=== PATIENT | male | born 1995 | race Caucasian/White ===

== ENCOUNTER 2023-03-02 17:30 | Emergency (ER) | payer OTHER, SELFPAY ==
[2023-03-02 18:14] VITALS: BP 139/67; PULSE 67; RESP 18; TEMP 36.8; O2SAT 100
--- NOTE | 2023-03-02 19:13 | ED.ANXIETY ---
HPI - Anxiety General Chief Complaint: Anxiety Stated Complaint: mental health exam Time Seen by Provider: 03/02/23 19:12 History of Present Illness HPI narrative: 27-year-old male presented the emergency department for evaluation of increased anxiety. Patient states he has been going through a situation which involved a fellow client services manager committing suicide. Patient just returned from his friend's services. Patient does admit to daily THC use and is on Adderall. Patient states he has had increased difficulty sleeping and increased issues with anxiety. Patient denies any suicidal thoughts or any thoughts of self-harm. Patient declined to speak to a crisis counselor in the ED. Related Data Home Medications Medication Instructions Recorded Confirmed dextroamphetamine-amphetamine 20 20 mg PO BID 03/03/23 03/03/23 mg tablet (Adderall) Allergies Allergy/AdvReac Type Severity Reaction Status Date / Time amoxicillin Allergy Difficulty Verified 03/02/23 18:16 Breathing Review of Systems Review of Systems: All systems reviewed & are unremarkable except as noted in HPI and below PMFSH Social History Social History Substance use type: marijuana and prescription drug Exam Narrative: APPEARANCE: Well appearing, no pain, no distress, well-nourished. HEAD: normocephalic, atraumatic. EYES: PERRLA/EOMI, conjunctivae clear. NOSE: Normal no drainage EARS:TMS clear with good light reflex. THROAT: Pharynx clear, no exudate. NECK: Supple. No adenopathy, no masses. RESPIRATORY: Airway patent, respirations nonlabored. Clear to auscultation bilaterally, no rales, rhonchi, wheezing. CARDIOVASCULAR: Regular rate and rhythm without murmurs rubs or gallops. ABDOMINAL: Soft, nontender, nondistended, normal bowel sounds MUSCULOSKELETAL: Moves all extremities. Strength/ROM intact, No edema, No calf tenderness. NEURO: Alert. Cranial nerves II through XII intact. Grossly intact SKIN: Warm, dry. Normal Color PSYCHIATRIC: Increased anxiety Course Course Emergency Course: Patient declined to be seen by the crisis counselor. Patient denies any homicidal suicidal ideation. Patient feel he is safe for discharge home. Patient was provided outpatient services for follow up in. All question concerns were addressed and patient was encouraged to return to the emergency department if he had any worsening symptoms. Vital Signs Vital signs: Vital Signs Temperature 98.3 F 08/22/23 18:14 Pulse Rate 67 03/02/23 18:14 Respiratory Rate 18 03/02/23 18:14 Blood Pressure 139/67 03/02/23 18:14 Pulse Oximetry 100 03/02/23 18:14 Oxygen Delivery Room Air 03/02/23 18:14 Temperature 98.3 F 03/02/23 18:14 Pulse Rate 67 03/02/23 18:14 Respiratory Rate 18 03/02/23 18:14 Blood Pressure 139/67 03/02/23 18:14 Pulse Oximetry 100 03/02/23 18:14 Oxygen Delivery Room Air 03/02/23 18:14 Discharge Plan Discharge Clinical Impression: Acute anxiety Patient Disposition: Home, Self-Care Condition: Stable Instructions: Antibiotic Form, Anxiety (ED) Additional Instructions: Refrain from cannabis use. Work on your sleep hygiene. Start a workout regiment. Have close follow-up with counseling as outpatient. If you have any questions or concerns then please call or return to the emergency department. Prescriptions: No Action dextroamphetamine-amphetamine [Adderall] 20 mg Tablet 20 mg PO BID Rx Instructions: administer doses at least 4-6 hours apart Follow-up/Referrals: PHYSICIAN,NAPKIN MACHINE OPERATOR [Primary Care Provider] -
== END 2023-03-02 20:42 | disposition home or self-care (01) ==
PROVIDERS: Emergency Provider Emergency Medicine
DX: F41.9 Anxiety disorder, unspecified (principal)
CPT/HCPCS: 99283

== ENCOUNTER 2023-03-03 12:14 | Emergency (ER) | payer OTHER, SELFPAY ==
[2023-03-03 12:18] VITALS: BP 149/81; PULSE 105; RESP 16; TEMP 36.4; O2SAT 100
--- NOTE | 2023-03-03 12:40 | PC.NURSE ---
when taking pt back to a room pt states he is actually not here for a headache and is having SI thoughts. pt tearful in room. when asking pt when these thoughts started he said all my life. This RN asked if something triggered him today to come to the ER. Pt states he has been having a lot of issues at work. pt states his boss gave him some resources. pt denies having a plan. pt denies previous psychiatric treatment. pt denies any HI thoughts. pt taken from room 18 to room 15. belongings placed in locked cabinet.
[2023-03-03 13:18] LABS: Basophils Percent Auto 0.4 % (0.2-1.2); Eosinophils Absolute Auto 0.2 K/mm3 (0-0.3); Eosinophils Percent Auto 2.2 % (0-4.4); Hematocrit 46.9 % (42.0-52.0); Hemoglobin 15.2 g/dL (14.0-18.0); Immature Granulocyte Absolute 0.02 K/mm3 (0.00-0.031); Immature Granulocyte Percent A 0.3 % (0-0.5); Lymphocytes Absolute Auto 2.19 K/mm3 (0.9-3.2); Lymphocytes Percent Auto 27.7 % (18.3-44.2); Mean Corpuscular HGB Conc 32.4 g/dl (32-36); Mean Corpuscular Hemoglobin 29.1 pg (26-34); Mean Corpuscular Volume 89.7 fl (80-100); Mean Platelet Volume 10.5 fl (7.4-10.4); Monocytes Absolute Auto 0.6 K/mm3 (0.1-0.6); Monocytes Percent Auto 8.1 % (2.6-8.5); Neutrophils Absolute Auto 4.9 K/mm3 (1.3-6.7); Neutrophils Percent Auto 61.3 % (45.5-73.1); Platelet Count Result 252 k/mm3 (150-375); Red Blood Count 5.23 M/mm3 (4.6-6.20); Red Cell Distribution Width 12.5 % (11.5-14.5); White Blood Count 7.9 K/mm3 (4.5-10.0)
[2023-03-03 13:28] LABS: Acetaminophen < 10 ug/mL (10-30); Alanine Aminotransferase 22 U/L (6-50); Albumin Level 4.6 g/dL (3.5-5.1); Alkaline Phosphatase 71 U/L (38-126); Anion Gap 8 mmol/L (8-16); Aspartate Amino Transferase 23 U/L (17-59); Bilirubin,Total 1.1 mg/dL (0.2-1.3); Blood Urea Nitrogen 9 mg/dL (9-20); Calcium 9.4 mg/dL (8.4-10.2); Carbon Dioxide 23 mmol/L (22-30); Chloride 104 mmol/L (98-107); Estimated CRCL calculation 119 ml/min; Estimated Glomerular Filt Rate > 60; Ethanol < 10 mg/dL (<10); Glucose 98 mg/dL (65-110); Magnesium 1.9 mg/dL (1.6-2.3); Potassium 3.9 mmol/L (3.4-5.0); Salicylate < 1.0 mg/dL (2-20); Sodium 135 mmol/L (137-145)
--- NOTE | 2023-03-03 13:46 | ED.GENADULT ---
HPI - General Adult General Chief complaint: Psychiatric Symptoms Stated complaint: GREENE Time Seen by Provider: 03/03/23 12:30 History of Present Illness HPI narrative: 27-year-old with history of ADHD presented the emergency department for evaluation of increased stress and anxiety. Patient reports that he did attend the for a fellow serviceman that . Patient was seen in the emergency department yesterday and reported anxiety but declined to be seen by the crisis counselor. Patient states after getting home he felt that his symptoms worsen and equal that he needed to be evaluated emergently. Patient denies having a plan. Related Data Home Medications Medication Instructions Recorded Confirmed dextroamphetamine-amphetamine 20 20 mg PO BID 03/03/23 03/03/23 mg tablet (Adderall) Allergies Allergy/AdvReac Type Severity Reaction Status Date / Time amoxicillin Allergy Difficulty Verified 03/02/23 18:16 Breathing Review of Systems Review of Systems: All systems reviewed & are unremarkable except as noted in HPI and below PMFSH Social History Social History Substance use type: marijuana and prescription drug Exam Narrative: APPEARANCE: Well appearing, no pain, no distress, well-nourished. HEAD: normocephalic, atraumatic. EYES: PERRLA/EOMI, conjunctivae clear. NOSE: Normal no drainage EARS:TMS clear with good light reflex. THROAT: Pharynx clear, no exudate. NECK: Supple. No adenopathy, no masses. RESPIRATORY: Airway patent, respirations nonlabored. Clear to auscultation bilaterally, no rales, rhonchi, wheezing. CARDIOVASCULAR: Regular rate and rhythm without murmurs rubs or gallops. ABDOMINAL: Soft, nontender, nondistended, normal bowel sounds MUSCULOSKELETAL: Moves all extremities. Strength/ROM intact, No edema, No calf tenderness. NEURO: Alert. Cranial nerves II through XII intact. Good gait. Good coordination SKIN: Warm, dry. Normal Color Psychiatric : Not emotionally labile with a normal affect Course Course Emergency Course: 27-year-old male presented ED for evaluation of increased anxiety agitation and confusion about life. Patient states he has had suicidal thoughts but denies any plan denies any intent to act on these thoughts. Patient was a bit of the plan for medical clearance and then evaluation by the crisis counselor. Patient was evaluated by the crisis counselor and patient signed a safety agreement. Patient will be set up with the [facility] and they crisis counselors will call to make contact with the patient as outpatient. Patient was comfortable with the plan for discharge and close follow-up. Reevaluation(s) Reevaluation #1: Patient is medically cleared to be evaluated by the crisis counselor. Patient is medically cleared for transport and inpatient psychiatric hospitalization as needed. Vital Signs Vital signs: Vital Signs Temperature 97.6 F 03/03/23 12:18 Pulse Rate 105 H 03/03/23 12:18 Respiratory Rate 16 03/03/23 12:18 Blood Pressure 149/81 H 03/03/23 12:18 Pulse Oximetry 100 03/03/23 12:18 Oxygen Delivery Room Air 03/03/23 12:18 Temperature 97.6 F 03/03/23 12:18 Pulse Rate 65 03/03/23 16:31 Respiratory Rate 18 03/03/23 16:31 Blood Pressure 150/92 H 03/03/23 16:31 Pulse Oximetry 100 03/03/23 16:31 Oxygen Delivery Room Air 03/03/23 12:18 Medical Decision Making Differential Diagnosis Differential Diagnosis: Depression, anxiety, PTSD Vital Signs Vital Signs: Vital Signs Temperature 97.6 F 03/03/23 12:18 Pulse Rate 105 H 03/03/23 12:18 Respiratory Rate 16 03/03/23 12:18 Blood Pressure 149/81 H 03/03/23 12:18 Pulse Oximetry 100 03/03/23 12:18 Oxygen Delivery Room Air 03/03/23 12:18 Temperature 97.6 F 03/03/23 12:18 Pulse Rate 65 03/03/23 16:31 Respiratory Rate 18 03/03/23 16:31 Blood Pressure 150/92 H 03/03/23 16:31 Pulse Oximetry 100 03/03/23 16:31 Oxygen Delivery
[2023-03-03 13:53] LABS: Influenza A QL RT-PCR Negative (Negative); Influenza B QL RT-PCR Negative (Negative); RSV RNA, RT-PCR Negative (Negative); SARS-CoV-2 RNA PCR Negative (Negative)
[2023-03-03 14:39] LABS: Amphetamine Screen Urine Positive (Negative); Barbiturate Screen Urine Negative (Negative); Benzodiazepines Screen Urine Negative (Negative); Cannabinoid Screen Urine Positive (Negative); Cocaine Screen Urine Negative (Negative); Methadone Screen Urine Negative (Negative); Opiate Screen Urine Negative (Negative); Phencyclidine Screen Urine Negative (Negative)
[2023-03-03 15:09] LABS: Add Urine Microscopic? NO; Appearance Urine Clear (Clear); Bilirubin Urine Negative (Negative); Blood Urine Negative (Negative); Color Urine Yellow (Yellow); Glucose Urine UA Negative (Negative); Ketones Urine 2+ mg/dL (Negative); Leukocyte Esterase Ur Negative LEU/UL (Negative); Nitrate Urine Negative (Negative); Protein Urine Negative (Negative); Specific Grav Ur 1.015 (1.001-1.035); Urobilinogen Urine 0.2 mg/dL (<2.0)
[2023-03-03 16:31] VITALS: BP 150/92; PULSE 65; RESP 18; O2SAT 100
== END 2023-03-03 18:00 | disposition home or self-care (01) ==
PROVIDERS: Emergency Provider Emergency Medicine
DX: F41.9 Anxiety disorder, unspecified (principal); Z20.822 Contact with and (suspected) exposure to COVID-19; F90.9 Attention-deficit hyperactivity disorder, unspecified type
CPT/HCPCS: 36415; 80053; 80307; 81003; 83735; 84443; 85025; 87637; 99284